=== PATIENT | male | born 1945 | race Caucasian/White ===

== ENCOUNTER 2024-11-04 15:05 | Emergency (ER) | payer MEDICARE, SELFPAY ==
[2024-11-04] VITALS (12 sets, daily range): BP systolic 132–169; BP diastolic 72–89; PULSE 64–71; RESP 13–18; TEMP 36.6–36.9; O2SAT 94–100
[2024-11-04 15:32] LABS: Microscopic, Urine URINE MICROSCOPIC (MICROSCOPIC)
--- NOTE | 2024-11-04 15:45 | XR_ITS ---
PROCEDURE INFORMATION: Exam: XR Chest Exam date and time: 11/04/2024 4:59 PM Age: 79 years old Clinical indication: Shortness of breath; Additional info: [place] TECHNIQUE: Imaging protocol: Radiologic exam of the chest. Views: 1 view. COMPARISON: CT ABDOMEN PELVIS W CON 11/04/2024 4:56 PM FINDINGS: Lungs: Unremarkable. No consolidation. Pleural spaces: Unremarkable. No pleural effusion. No pneumothorax. Heart/Mediastinum: Unremarkable. No cardiomegaly. Bones/joints: Unremarkable. IMPRESSION: No acute findings.
--- NOTE | 2024-11-04 15:46 | CT_ITS ---
PROCEDURE INFORMATION: Exam: CT Abdomen And Pelvis With Contrast Exam date and time: 11/04/2024 4:56 PM Age: 79 years old Clinical indication: Abdominal pain; Additional info: Diffuse abdominal pain, nausea and diarrhea TECHNIQUE: Imaging protocol: Computed tomography of the abdomen and pelvis with contrast. Radiation optimization: All CT scans at this facility use at least one of these dose optimization techniques: automated exposure control; mA and/or kV adjustment per patient size (includes targeted exams where dose is matched to clinical indication); or iterative reconstruction. Contrast material: ISOVUE; Contrast volume: 75 ml; Contrast route: IV; COMPARISON: No relevant prior studies available. FINDINGS: Liver: There is a diffuse decrease in hepatic parenchymal density consistent with fatty infiltration. No liver mass. Gallbladder and biliary ducts: Distended gallbladder without evidence of dense gallstones or gallbladder wall thickening. Pancreas: Normal. No ductal dilation. Spleen: Normal. No splenomegaly. Adrenal glands: Normal. No mass. Kidneys and ureters: Normal. No hydronephrosis. Stomach and bowel: Colonic diverticulosis. No bowel dilatation. Appendix: No evidence of appendicitis. Intraperitoneal space: Unremarkable. No free air. No significant fluid collection. Vasculature: Mild atherosclerotic changes are seen within the abdominal aorta and branch vasculature without evidence of aneurysm. Lymph nodes: Unremarkable. No enlarged lymph nodes. Urinary bladder: Unremarkable as visualized. Reproductive: Prostate gland brachytherapy seeds without evidence of gland enlargement. Bones/joints: Unremarkable. No acute fracture. Soft tissues: Unremarkable. IMPRESSION: 1. Nonspecific gallbladder distension. 2. Diverticulosis. 3. Fatty liver.
--- NOTE | 2024-11-04 15:49 | ED_ITS ---
<Statement entered by Nadia Gaxiola DO - 11/05/24 00:44> I was consulted by the TRAMAINE, and we discussed the complexity of the problems being addressed. I approved the treatment and management plan for this patient's care in the emergency department, thus performing a substantive portion of the medical decision making. Nadia Gaxiola DO Discharge Plan Disposition Patient Disposition: Home, Self-Care Condition: Good Prescriptions Prescriptions: New pantoprazole [Protonix] 40 mg tablet,delayed release (DR/EC) 40 mg PO DAILY Qty: 28 0RF Rx Instructions: Take once daily for 4 weeks or until follow-up with PCP Referrals Follow up/Referrals: Provider,MD Wayne [Primary Care Provider] - See instructions Keyshawn Mckeon MD [Staff Physician] - See instructions Activity Restrictions/Add. Instructions Additional Instructions/Restrictions: Please return to the emergency department with any worsening signs or symptoms, continue to progress diet as tolerated, please take medication as prescribed once daily for 4 weeks or until follow-up with PCP. Continue to drink plenty of liquids, please follow-up with general surgery team in the upcoming weeks. Clinical Impressions Clinical Impression: Abdominal pain, Diarrhea Instructions Patient Instructions: DI for Acute Abdominal Pain Print Language Print Language: Scottish Discharge ED Provider: Nadia Gaxiola General Adult HPI <BRANDYN Goode - Last Filed: 11/04/24 18:40> General Chief complaint: Abdominal Pain Stated complaint: darby,abdominal pain,acid reflex,fever Time Seen by Provider: 11/04/24 15:40 Mode of Arrival: Ambulatory Source of Information: Patient and Spouse Description of Symptoms (Recalled from ER Triage Doc. by RN): Pt presents for evaluation of RUQ to mid abdominal pain since friday. Pt states he feels slightly bloated, and has had diarrhea. Pt states he had a ct scan at the [facility] and the result was negative History of Present Illness HPI narrative: 79-year-old male presents to the emergency department with abdominal pain more localized to the right upper quadrant, and mid abdomen for the last 3 to 4 days, he endorses nausea no vomiting, abdominal bloating and episodes of diarrhea that are nonbilious nonbloody, denies any hematochezia, admits to subjective fever chills, shortness of breath at times, mainly when episodes of pain hit him, as well as just fatigue and malaise, he denies any overt chest pain, denies any cough congestion, denies any other real relevant past medical history takes no other medications at home, does have history of facial surgery/left eye surgery, as he states that he had his I put out in 2006 , he does wear eyepatch for this. 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 Onset (ago): day(s) Related Data Previous Rx's ?Medication ?Instructions ?Recorded pantoprazole 40 mg tablet,delayed 40 mg PO DAILY #28 tabs 11/04/24 release (Protonix) Allergies Allergy/AdvReac Type Severity Reaction Status Date / Time No Known Allergies Allergy Verified 11/04/24 15:27 [facility] <BRANDYN Goode - Last Filed: 11/04/24 18:40> [facility] Disclaimer: The information contained in this section may have been updated after the patient was seen, as this information can be updated by other users. Social History Smoking Status: Never smoker alcohol intake: never current occupational status: other Travel in the last 8 weeks?: None <BRANDYN Goode - Last Filed: 11/04/24 18:40> ROS Obtained: Yes All systems reviewed & no additional complaints except as documented Physical Exam <BRANDYN Goode - Last Filed: 11/04/24 18:40> General General appearance: alert and in no apparent distress Head Head exam: atraumatic and normocephalic Eye Eye exam: Present PERRL and EOMI ENT ENT exam: Present mucous membranes moist Neck Neck exam: Present normal inspection Chest Chest inspection: Present normal inspection and symmetric chest wall rise Respiratory Respiratory exam: Present normal lung sounds bilaterally; Absent respiratory distress, wheezes or stridor Cardiovascular Cardiovascular exam: Present regular rate and normal rhythm Abdominal Exam Abdominal exam: Present soft, distention and tenderness; Absent guarding, rebound or rigidity Abdominal tenderness: Present diffuse and mild Comment: Mild diffuse abdominal tenderness, with some abdominal distention, no guarding no rebound or rigidity Extremities Exam Extremities exam: Present normal inspection Neurological Exam Neurological exam: Present alert and oriented X3 Psychiatric Psychiatric exam: Present normal affect Skin Skin exam: Present warm and dry Medical Decision Making <BRANDYN Goode - Last Filed: 11/04/24 18:40> Medical Records Medical records reviewed: Yes I reviewed the patient's medical records. Screening: Per USPSTF and CDC recommendations, given the prevalence of disease in our region, it is our hospital?s policy to screen for HIV and viral Hepatitis for all patients aged 18 and over and those with ongoing risk factors. Santiago Inquiry Pt receiving controlled substance: Yes Santiago was queried for this patient: No Reason not queried -: Emergent pt cond-no time Risks and benefits of using a controlled substance: were discussed with pt by me Vital Signs: 11/04/24 15:15 11/04/24 15:26 11/04/24 15:30 Temperature 98.5 F Temperature Source Oral Pulse Rate 67 71 Pulse Rate [Right] 67 Respiratory Rate 18 Blood Pressure 169/81 H 150/89 H Blood Pressure [Right Arm] 154/82 H Blood Pressure Mean Blood Pressure Mean [Right Arm] 106 Blood Pressure Source [Right Arm] Automatic Cuff Blood Pressure Position [Right Arm] Sitting 02 Sat by Pulse Oximetry 100 98 96 Oxygen Delivery Method Room Air Room Air Room Air 11/04/24 15:48 11/04/24 16:00 11/04/24 16:30 Temperature Temperature Source Pulse Rate 68 70 71 Pulse Rate [Right] Respiratory Rate 14 15 Blood Pressure 150/89 H 132/80 147/80 H Blood Pressure [Right Arm] Blood Pressure Mean Blood Pressure Mean [Right Arm] Blood Pressure Source [Right Arm] Blood Pressure Position [Right Arm] 02 Sat by Pulse Oximetry 97 96 94 L Oxygen Delivery Method Room Air Room Air 11/04/24 17:17 11/04/24 17:30 11/04/24 18:00 Temperature Temperature Source Pulse Rate 67 65 68 Pulse Rate [Right] Respiratory Rate 17 13 Blood Pressure 134/72 138/75 150/84 H Blood Pressure [Right Arm] Blood Pressure Mean 97 Blood Pressure Mean [Right Arm] Blood Pressure Source [Right Arm] Blood Pressure Position [Right Arm] 02 Sat by Pulse Oximetry 96 97 98 Oxygen Delivery Method Room Air Room Air Room Air 11/04/24 18:30 Temperature Temperature Source Pulse Rate 64 Pulse Rate [Right] Respiratory Rate 17 Blood Pressure 151/77 H Blood Pressure [Right Arm] Blood Pressure Mean Blood Pressure Mean [Right Arm] Blood Pressure Source [Right Arm] Blood Pressure Position [Right Arm] 02 Sat by Pulse Oximetry 99 Oxygen Delivery Method Room Air Lab Data Lab Results 11/04/24 15:26: Urine Color Yellow, Urine Appearance Clear, Urine pH 6.0, Ur Specific [place] 1.025, Urine Protein Negative, Urine Glucose (UA) Negative, Urine Ketones Negative, Urine Blood Negative, Urine Nitrate Negative, Urine Bilirubin Negative, Urine Urobilinogen 0.2, Ur Leukocyte Esterase Negative, Urine RBC Occasional, Urine WBC Occasional, Ur Squamous Epith Cells Occasional, Urine Bacteria Trace, Urine Mucus 1+ 11/04/24 15:45: WBC 6.6, RBC 4.60, Hgb 14.4, Hct 43.9, MCV 95.4 H, MCH 31.3 H, MCHC 32.8, RDW 13.1, Plt Count 164, MPV 10.0, Neut % (Auto) 55.1, Lymph % (Auto) 30.4, Motley % (Auto) 13.0 H, Eos % (Auto) 0.8, Baso % (Auto) 0.5, Neut # (Auto) 3.7, Lymph # (Auto) 2.0, Motley # (Auto) 0.9, Eos # (Auto) 0.1, Baso # (Auto) 0.0, Sodium 137, Potassium 4.0, Chloride 104, Carbon Dioxide 27, Anion Gap 10.0, BUN 16, Creatinine 1.00, Estimated Creat Clear 8, Estimated GFR 72, Est GFR ( Amer) 87, Glucose 93, Lactate 1.2, Calcium 8.3 L, Magnesium 2.1, Total Bilirubin 0.6, AST 45, ALT 27, Alkaline Phosphatase 55, Troponin I < 0.01, NT-Pro-B Natriuret Pep 105, Total Protein 7.1, Albumin 4.2, Globulin 2.9, Albumin/Globulin Ratio 1.4, Lipase 34 11/04/24 15:45 11/04/24 15:45 Orders (Tests/Meds): ED MEDICATIONS Discontinued Medications Generic Name Dose Route Start Last Admin Trade Name Freq PRN Reason Stop Dose Admin Iopamidol 75 ml 11/04/24 16:58 11/04/24 16:58 Iopamidol-370 (76%);100ml Bottle IV 11/04/24 16:59 75 ml ONCE ONE Administration Morphine Sulfate 4 mg 11/04/24 15:48 11/04/24 16:04 Morphine 4mg/Ml Syringe IV 11/04/24 15:49 Not Given ONCE ONE Ondansetron HCl 4 mg 11/04/24 15:48 11/04/24 15:57 Ondansetron 4mg/2ml Vial IV 11/04/24 15:49 4 mg ONCE ONE Administration Sodium Chloride 10 ml 11/04/24 16:58 11/04/24 16:58 Sodium Chloride 0.9% 10ml Syr (Rad Only) IV 11/04/24 16:59 10 ml ONCE ONE Administration ORDERS Category Date Time Status CT abdomen pelvis w con Stat Cat Scan 11/04/24 15:46 Completed POCUS Point of Care (ER Only) Stat Exams 11/04/24 17:46 Ordered XR chest portable Stat Exams 11/04/24 15:45 Completed Complete Blood Count Auto Diff Stat Lab 11/04/24 15:45 Completed Comprehensive Metabolic Panel Stat Lab 11/04/24 15:45 Completed Diarrhea 23 Panel, PCR Stat Lab 11/04/24 18:31 Ordered Lactic Acid Stat Lab 11/04/24 15:45 Completed Lipase Stat Lab 11/04/24 15:45 Completed Magnesium Stat Lab 11/04/24 15:45 Completed NT Pro Brain Natriuretic Pep. Stat Lab 11/04/24 15:45 Completed Troponin I Q3H Lab 11/04/24 18:45 Ordered Troponin I Q3H Lab 11/04/24 21:45 Ordered Troponin I Stat Lab 11/04/24 15:45 Completed Urinalysis and Microscopic Stat Lab 11/04/24 15:26 Completed Medical Decision Narrative: 79-year-old male presents emerged from with abdominal pain, abdominal distention, nausea, diarrhea no vomiting, for several days, differential diagnosis could but limited to bowel obstruction, cholelithiasis, cholecystitis, choledocholithiasis, pancreatitis, appendicitis, diverticulitis, nephrolithiasis, acute UTI, pyelonephritis, gastritis, among others. Will obtain basic laboratory studies lactate level, lipase level magnesium level proBNP troponin urinalysis, chest x-ray, CT abdomen pelvis with contrast will be performed for further evaluation as characterization, will give 4 mg IV morphine for pain and 4 mg IV Zofran for nausea. I was notified by nursing staff at approximately 4 PM that the patient's family and patient refused morphine administration. CBC is unremarkable no leukocytosis. CMP reveals normal lactic no lactic acidosis, normal troponin, normal proBNP, lipase within normal limits. Urinalysis unremarkable. I reviewed the patient's chest x-ray along with corresponding radiologic report no acute findings. I reviewed the patient's CT abdomen pelvis with contrast along the corresponding radiologic report, there is nonspecific gallbladder distention, diverticulosis and a fatty liver. Obtain POCUS bedside ultrasound. Bedside POCUS ultrasound was performed by attending physician, no gallstones, no evidence of cholelithiasis, negative sonographic Diaz sign, please see attached POCUS ultrasound report. 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 <Nadia Gaxiola, DO - Last Filed: 11/04/24 18:32> Vital Signs: 11/04/24 15:15 11/04/24 15:26 11/04/24 15:30 Temperature 98.5 F Temperature Source Oral Pulse Rate 67 71 Pulse Rate [Right] 67 Respiratory Rate 18 Blood Pressure 169/81 H 150/89 H Blood Pressure [Right Arm] 154/82 H Blood Pressure Mean Blood Pressure Mean [Right Arm] 106 Blood Pressure Source [Right Arm] Automatic Cuff Blood Pressure Position [Right Arm] Sitting 02 Sat by Pulse Oximetry 100 98 96 Oxygen Delivery Method Room Air Room Air Room Air 11/04/24 15:48 11/04/24 16:00 11/04/24 16:30 Temperature Temperature Source Pulse Rate 68 70 71 Pulse Rate [Right] Respiratory Rate 14 15 Blood Pressure 150/89 H 132/80 147/80 H Blood Pressure [Right Arm] Blood Pressure Mean Blood Pressure Mean [Right Arm] Blood Pressure Source [Right Arm] Blood Pressure Position [Right Arm] 02 Sat by Pulse Oximetry 97 96 94 L Oxygen Delivery Method Room Air Room Air 11/04/24 17:17 11/04/24 17:30 11/04/24 18:00 Temperature Temperature Source Pulse Rate 67 65 68 Pulse Rate [Right] Respiratory Rate 17 13 Blood Pressure 134/72 138/75 150/84 H Blood Pressure [Right Arm] Blood Pressure Mean 97 Blood Pressure Mean [Right Arm] Blood Pressure Source [Right Arm] Blood Pressure Position [Right Arm] 02 Sat by Pulse Oximetry 96 97 98 Oxygen Delivery Method Room Air Room Air Room Air 11/04/24 18:30 Temperature Temperature Source Pulse Rate 64 Pulse Rate [Right] Respiratory Rate 17 Blood Pressure 151/77 H Blood Pressure [Right Arm] Blood Pressure Mean Blood Pressure Mean [Right Arm] Blood Pressure Source [Right Arm] Blood Pressure Position [Right Arm] 02 Sat by Pulse Oximetry 99 Oxygen Delivery Method Room Air Lab Data Lab Results 11/04/24 15:26: Urine Color Yellow, Urine Appearance Clear, Urine pH 6.0, Ur Specific [place] 1.025, Urine Protein Negative, Urine Glucose (UA) Negative, Urine Ketones Negative, Urine Blood Negative, Urine Nitrate Negative, Urine Bilirubin Negative, Urine Urobilinogen 0.2, Ur Leukocyte Esterase Negative, Urine RBC Occasional, Urine WBC Occasional, Ur Squamous Epith Cells Occasional, Urine Bacteria Trace, Urine Mucus 1+ 11/04/24 15:45: WBC 6.6, RBC 4.60, Hgb 14.4, Hct 43.9, MCV 95.4 H, MCH 31.3 H, MCHC 32.8, RDW 13.1, Plt Count 164, MPV 10.0, Neut % (Auto) 55.1, Lymph % (Auto) 30.4, Motley % (Auto) 13.0 H, Eos % (Auto) 0.8, Baso % (Auto) 0.5, Neut # (Auto) 3.7, Lymph # (Auto) 2.0, Motley # (Auto) 0.9, Eos # (Auto) 0.1, Baso # (Auto) 0.0, Sodium 137, Potassium 4.0, Chloride 104, Carbon Dioxide 27, Anion Gap 10.0, BUN 16, Creatinine 1.00, Estimated Creat Clear 8, Estimated GFR 72, Est GFR ( Amer) 87, Glucose 93, Lactate 1.2, Calcium 8.3 L, Magnesium 2.1, Total Bilirubin 0.6, AST 45, ALT 27, Alkaline Phosphatase 55, Troponin I < 0.01, NT-Pro-B Natriuret Pep 105, Total Protein 7.1, Albumin 4.2, Globulin 2.9, Albumin/Globulin Ratio 1.4, Lipase 34 Orders (Tests/Meds): ED MEDICATIONS Discontinued Medications Generic Name Dose Route Start Last Admin Trade Name Krys PRN Reason Stop Dose Admin Iopamidol 75 ml 11/04/24 16:58 11/04/24 16:58 Iopamidol-370 (76%);100ml Bottle IV 11/04/24 16:59 75 ml ONCE ONE Administration Morphine Sulfate 4 mg 11/04/24 15:48 11/04/24 16:04 Morphine 4mg/Ml Syringe IV 11/04/24 15:49 Not Given ONCE ONE Ondansetron HCl 4 mg 11/04/24 15:48 11/04/24 15:57 Ondansetron 4mg/2ml Vial IV 11/04/24 15:49 4 mg ONCE ONE Administration Sodium Chloride 10 ml 11/04/24 16:58 11/04/24 16:58 Sodium Chloride 0.9% 10ml Syr (Rad Only) IV 11/04/24 16:59 10 ml ONCE ONE Administration ORDERS Category Date Time Status CT abdomen pelvis w con Stat Cat Scan 11/04/24 15:46 Completed POCUS Point of Care (ER Only) Stat Exams 11/04/24 17:46 Ordered XR chest portable Stat Exams 11/04/24 15:45 Completed Complete Blood Count Auto Diff Stat Lab 11/04/24 15:45 Completed Comprehensive Metabolic Panel Stat Lab 11/04/24 15:45 Completed Diarrhea 23 Panel, PCR Stat Lab 11/04/24 18:31 Ordered Lactic Acid Stat Lab 11/04/24 15:45 Completed Lipase Stat Lab 11/04/24 15:45 Completed Magnesium Stat Lab 11/04/24 15:45 Completed NT Pro Brain Natriuretic Pep. Stat Lab 11/04/24 15:45 Completed Troponin I Q3H Lab 11/04/24 18:45 Ordered Troponin I Q3H Lab 11/04/24 21:45 Ordered Troponin I Stat Lab 11/04/24 15:45 Completed Urinalysis and Microscopic Stat Lab 11/04/24 15:26 Completed ECG Data Tracing #1: I reviewed this ECG and interpreted as documented below: Normal sinus rhythm with first-degree AV block with a NH interval of 260 ms. Ventricular rate of [address] changes concerning for ischemia ECG initial impression date: 11/04/24 ECG initial impression time: 15:54 Procedures <Nadia N Gaxiola, DO - Last Filed: 11/04/24 18:32> Limited Ultrasound Findings:: Limited RUQ ultrasound Indication: Epigastric abdominal pain Identified structures: -Gallbladder -Gallbladder wall -Liver Findings: Sonographic Diaz sign: Absent Gallstones: Absent Sludge: Absent Pericholecystic fluid: Absent Maximal GB wall thickness (mm): [normal is </= 3mm] Normal Common bile duct width (mm): [normal is </= 6mm] Not visualized due to limitations of study/bowel gas pattern Gallbladder width (cm): [normal is < 4cm] Normal Gallbladder length (cm): [normal is < 10cm] Normal Impression: Normal gallbladder Images were saved to permanent archive The study was technically adequate CPT 87334-86 This study was performed by me, and I personally interpreted all images/videos. Based on my clinical judgement, these images were adequate and did not necessitate further imaging. Critical Care <BRANDYN Goode - Last Filed: 11/04/24 18:40> Critical Care Time Critical Care Time: No
[2024-11-04 15:50] LABS: Appearance,Urine CLEAR (Clear); Bilirubin,Urine Negative (Negative); Blood, Urine Negative (Negative); Color,Urine YELLOW (Yellow); Glucose,Urine (UA) Negative (Negative); Ketones,Urine Negative (Negative); Leukocyte Esterase,Urine Negative (Negative); Nitrate,Urine Negative (Negative); Protein,Urine Negative (Negative); Specific Gravity, Urine 1.025 (1.005-1.030); Urobilinogen,Urine 0.2 EU/dl (0.2)
--- NOTE | 2024-11-04 15:52 | ECG_ITS ---
APPROVED REPORT Exam: Resting ECG HR:65 bpm ECG Measurements Heart Rate 65 AXES ND 216 P 50 QRSd 113 QRS 50 QT 392 T 22 QTc 404 Conclusion SINUS RHYTHM WITH FIRST DEGREE AV BLOCK MODERATE INTRAVENTRICULAR CONDUCTION DELAY [110+ ms QRS DURATION] ABNORMAL ECG No STEMI Electronically signed by : IDALIA ESPINOZA, 11/05/2024 23:36:07
[2024-11-04 15:53] LABS: Basophils % 0.5 % (0.1-2.0); Eosinophils # 0.1 Kmm3 (0.0-0.4); Eosinophils % 0.8 % (0.1-12.0); Hematocrit 43.9 % (42.0-52.0); Hemoglobin 14.4 g/dL (14.1-18.0); Immature Granulocytes # 0.01 10^3uL; Immature Granulocytes % 0.2 %; Lymphocytes % 30.4 % (10-50); Mean Corpuscular HGB Conc 32.8 g/dL (31.8-35.4); Mean Corpuscular Hemoglobin 31.3 pg (27.0-31.2); Mean Corpuscular Volume 95.4 fl (80-94); Monocytes # 0.9 K/mm3 (0.1-1.0); Neutrophils # 3.7 K/mm3 (1.8-7.8); Neutrophils % 55.1 % (37.0-80.0); Nucleated Red Blood Cells # 0 10^3/uL; Nucleated Red Blood Cells % 0 %; Platelet Count 164 K/mm3 (142-424); Red Cell Distribution Width 13.1 % (11.5-17.5); Red Cell Distribution Width-SD 45.9 fL; White Blood Count 6.6 K/mm3 (4.8-10.8)
[2024-11-04] MEDS: ONDANSETRON 4MG/2ML VIAL 4 MG IV (15:57)
[2024-11-04 16:02] LABS: Alanine Aminotransferase 27 U/L (12-78); Albumin Level 4.2 g/dl (3.5-5.0); Albumin/Globulin Ratio 1.4 (1.1-1.8); Alkaline Phosphatase 55 U/L (38-126); Aspartate Amino Transferase 45 U/L (17-59); Bilirubin,Total 0.6 mg/dl (0.2-1.3); Blood Urea Nitrogen 16 mg/dl (9-20); Calcium 8.3 mg/dl (8.4-10.2); Carbon Dioxide 27 mmol/L (22.0-30.0); Chloride 104 mmol/L (98-107); Creatinine Clearance Estimated 8 mL/min (50-200); Estimated Glomerular Filt Rate 72 ml/min (>60); GFR (African American) 87 ML/MIN (>60); Globulin 2.9 g/dL (1.3-3.2); Glucose 93 mg/dl (74-100); Lipase 34 U/L (23-300); Magnesium 2.1 mg/dl (1.6-2.3); Sodium 137 mmol/L (136-145); Total Protein,Serum 7.1 g/dl (6.3-8.2)
--- NOTE | 2024-11-04 16:04 | PC.NURSE ---
pts spouse at bedside states that pt does not need morphine, asked pt if he would like anything for pain, and again pts spouse at bedside states that pt is not in pain and does not need pain medication.
[2024-11-04 16:08] LABS: Lactic Acid 1.2 mmol/L (0.7-2.1)
[2024-11-04 16:13] LABS: NT Pro Brain Natriuretic Pep. 105 pg/mL (0-450)
[2024-11-04 16:14] LABS: Troponin I < 0.01 ng/ml (0.00-0.034)
[2024-11-04 16:24] LABS: Bacteria,Urine Trace /lpf; Mucus,Urine 1+ /lpf; RBC,Urine Occasional #/hpf (0-3); Squamous Epithelial Cell,Urine Occasional #/hpf (0-5); WBC,Urine Occasional #/hpf (0-3)
[2024-11-04] MEDS: SODIUM CHLORIDE 0.9% 10ML SYR (RAD ONLY) 10 ML IV (16:58)
[2024-11-04] MEDS: IOPAMIDOL-370 (76%);100ML BOTTLE 75 ML IV (16:58)
== END 2024-11-04 18:57 | disposition home or self-care (01) ==
PROVIDERS: Physician Assistant; Emergency Provider Emergency Medicine
DX: R10.13 Epigastric pain (principal); I44.0 Atrioventricular block, first degree; R14.0 Abdominal distension (gaseous); R19.7 Diarrhea, unspecified
CPT/HCPCS: 71045; 74177; 80053; 81001; 83605; 83690; 83735; 83880; 84484; 85025; 93005; 96374; 99285; J2270; J2405; Q9967